=== PATIENT | female | born 1990 | race Caucasian/White ===

== ENCOUNTER 2016-12-25 17:07 | Emergency (ER) | payer BC, OTHER ==
[2016-12-25 17:21] VITALS: BP 152/84; PULSE 83; RESP 20; TEMP 98.3
[2016-12-25] MEDS ORDERED: DIPH,PERTUS(ACELL)TETVAC-LF 0.5 ML VIAL IM ONE (17:59)
--- NOTE | 2016-12-25 18:01 | ED ---
General Adult HPI - General Chief complaint: Wound/Laceration Stated complaint: TOUNGE INJURY Time Seen by Provider: 12/25/16 17:34 Source: patient, RN notes reviewed Mode of arrival: ambulatory Limitations: no limitations - History of Present Illness Initial comments: Patient 26-year-old female who presents emergency room today with a chief complaint of laceration to her tongue. She mitts that approximate hour ago she was picking up a water jug when it was later she thought hit her chin causing her to go through the edge of her tongue. She states bleeding has stopped. She states she's unsure of her tetanus. She denies any other complaints or symptoms at this time. - Related Data Home Medications Medication Instructions Recorded Confirmed EPINEPHrine [Epipen 2-Wei] 0.3 mg IM ONCE PRN 01/17/16 12/25/16 Albuterol Sulfate [Proair Hfa] 2 puff INHALATION RT-Q6H PRN 12/25/16 12/25/16 Aspirin/Acetaminophen/Caffeine 2 tab PO DAILY PRN 12/25/16 12/25/16 [Excedrin Extra Strength Caplet] Montelukast Sodium [Singulair] 10 mg PO HS 12/25/16 12/25/16 Omeprazole [PriLOSEC] 20 mg PO BID 12/25/16 12/25/16 Sulfamethoxazole/Trimethoprim 1 tab PO BID 12/25/16 12/25/16 [Bactrim DS 800-160 mg] predniSONE See Taper PO DIRECTED 12/25/16 12/25/16 Allergies Allergy/AdvReac Type Severity Reaction Status Date / Time cefdinir [From Omnicef] Allergy Rash/Hives Verified 12/25/16 17:43 ibuprofen [From Motrin] Allergy Anaphylaxis,tongue Verified 12/25/16 17:43 swells lansoprazole [From Prevacid] Allergy Rash/Hives Verified 12/25/16 17:43 Review of Systems ROS Statement: Those systems with pertinent positive or pertinent negative responses have been documented in the HPI. ROS Other: All systems not noted in ROS Statement are negative. Past Medical History Past Medical History: Asthma Additional Past Medical History / Comment(s): febrile seizure age 16 months History of Any Multi-Drug Resistant Organisms: None Reported Past Surgical History: Adenoidectomy, Tonsillectomy, Tubal Ligation Additional Past Surgical History / Comment(s): EXPLORATORY LAP, cyst removed left axillary Past Anesthesia/Blood Transfusion Reactions: Postoperative Nausea & Vomiting ( PONV) Past Psychological History: Anxiety Smoking Status: Current every day smoker Past Alcohol Use History: None Reported Past Drug Use History: None Reported General Exam - General Exam Comments Initial Comments: General: The patient is awake and alert, in no distress, and does not appear acutely ill. Eye: Pupils are equal, round and reactive to light, extra-ocular movements are intact. No nystagmus. There is normal conjunctiva bilaterally. No signs of icterus. Ears, nose, mouth and throat: There are moist mucous membranes and no oral lesions. Neck: The neck is supple, there is no tenderness or JVD. Cardiovascular: There is a regular rate and rhythm. No murmur, rub or gallop is appreciated. Respiratory: Lungs are clear to auscultation, respirations are non-labored, breath sounds are equal. No wheezes, stridor, rales, or rhonchi. Musculoskeletal: Normal ROM, no tenderness. Strength 5/5. Sensation intact. Pulses equal bilaterally 2+. Neurological: A&O x 3. CN II-XII intact, There are no obvious motor or sensory deficits. Coordination appears grossly intact. Speech is normal. Skin: does have a laceration at the tip of the tongue. There is no gaping wound. There is no bleeding. Cannot pull the site apart. Psychiatric: Cooperative, appropriate mood & affect, normal judgment. Limitations: no limitations Course Vital Signs 12/25/16 17:19 Temperature 98.3 F Pulse Rate 83 Respiratory 20 Rate Blood Pressure 152/84 O2 Sat by Pulse 99 Oximetry Medical Decision Making - Medical Decision Making Case discussed in detail with attending physician Dr. Charles. patient's wound arm. It is approximated. There is no active bleeding. Patient discharged home. Advised return for any other concerns. Given ENT follow-up with primary complication. Disposition Clinical Impression: Tongue laceration Disposition: HOME SELF-CARE Condition: Good Instructions: Laceration (ED) Additional Instructions: Please follow-up with ENT/family doctor in the next 2 days of symptoms have not improved. Please return to emergency room if the symptoms increase or worsen or for any other concerns. Referrals: Yuniel Jose MD [Primary Care Provider] - 1-2 days Sunil Vargas DO [Doctor of Osteopathic Medicine] - 1-2 days Time of Disposition: 18:01
== END 2016-12-25 18:24 | disposition home or self-care (01) ==
LOC: EC 17:07
DX: S01.512A Laceration without foreign body of oral cavity, initial encounter (principal); F17.200 Nicotine dependence, unspecified, uncomplicated; Z88.1 Allergy status to other antibiotic agents; Z88.6 Allergy status to analgesic agent; Z88.8 Allergy status to other drugs, medicaments and biological substances; Z90.49 Acquired absence of other specified parts of digestive tract; Z79.52 Long term (current) use of systemic steroids; Z79.899 Other long term (current) drug therapy; W26.9XXA Contact with unspecified sharp object(s), initial encounter; Y93.89 Activity, other specified
CPT/HCPCS: 90471; 90715; 99283

== ENCOUNTER → 2018-05-25 | Outpatient (CLI) | payer OTHER ==
[2018-05-25 19:45] LABS: Iron Saturation 22.48 (12.00-45.00)
== END | disposition home or self-care (01) ==
LOC: LABWHC1 12:49
PROVIDERS: ATTEND Surgery Plastic and Reconstructive Surgery
DX: E61.1 Iron deficiency (principal)
CPT/HCPCS: 36415; 83540; 83550

== ENCOUNTER 2018-06-17 10:01 | Day surgery (SDC) | payer OTHER ==
[2018-06-15 11:24] VITALS: BMI 35.0
--- NOTE | 2018-06-17 07:27 | P.GSHP ---
History of Present Illness H&P Date: 06/17/18 CHIEF COMPLAINT: Symptomatic hemorrhoids and rectal bleeding HISTORY OF PRESENT ILLNESS: The patient is a 27-year-old female who presents with symptomatic hemorrhoids and rectal bleeding. She now presents for definitive surgical intervention. PAST MEDICAL HISTORY: Please see list. PAST SURGICAL HISTORY: Please see list. MEDICATIONS: Please see list. ALLERGIES: Please see list. SOCIAL HISTORY: No illicit drug use FAMILY HISTORY: No reports of Crohn disease or ulcerative colitis. REVIEW OF ORGAN SYSTEMS: CONSTITUTIONAL: No reports of fevers or chills. PHYSICAL EXAM: VITAL SIGNS: Stable GENERAL: Well-developed pleasant in no acute distress. HEENT: No scleral icterus. Extraocular movements grossly intact. Moist buccal mucosa. NECK: Supple without lymphadenopathy. CHEST: Unlabored respirations. Equal bilateral excursions. CARDIOVASCULAR: Regular rate and rhythm. Distal 2+ pulses. ABDOMEN: Soft, nontender, nondistended. MUSCULOSKELETAL: No clubbing, cyanosis, or edema. RECTUM: Grade 3 external hemorrhoids ASSESSMENT: 1. Symptomatic hemorrhoids, grade 3. PLAN: 1. Recommend proceeding hemorrhoidectomy Past Medical History Past Medical History: Asthma Additional Past Medical History / Comment(s): Hemorrhoids; febrile seizure age 16 months History of Any Multi-Drug Resistant Organisms: None Reported Past Surgical History: Adenoidectomy, Tonsillectomy, Tubal Ligation Additional Past Surgical History / Comment(s): EXPLORATORY LAP, cyst removed Left & Right axillary Past Anesthesia/Blood Transfusion Reactions: Postoperative Nausea & Vomiting ( PONV) Smoking Status: Current every day smoker - Past Family History Mother Family Medical History: No Reported History Medications and Allergies Home Medications Medication Instructions Recorded Confirmed Type EPINEPHrine [Epipen 2-Wei] 0.3 mg IM ONCE PRN 01/17/16 06/15/18 History Albuterol Inhaler [Ventolin Hfa 1 - 2 puff INHALATION RT-Q6H PRN 06/15/18 History Inhaler] Cholecalciferol (Vitamin D3) 2,000 unit PO DAILY 06/15/18 06/15/18 History [Vitamin D3] Allergies Allergy/AdvReac Type Severity Reaction Status Date / Time cefdinir [From Omnicef] Allergy Rash/Hives Verified 12/25/16 17:43 ibuprofen [From Motrin] Allergy Anaphylaxis,tongue Verified 06/15/17 17:43 swells lansoprazole [From Prevacid] Allergy Rash/Hives Verified 12/25/16 17:43 cephalexin [From Keflex] AdvReac Rash/Hives Verified 06/15/18 11:11 dial soap AdvReac Rash/Hives Uncoded 06/15/18 11:11
[~2018-06-17 10:01] MED LIST: CLINDAMYCIN 900 MG in DEXTROSE 5% IN WATER 50 ML IVPB ONE; DEXAMETHASONE SOD PHOSPHATE 10 MG/ML 1 ML VIAL IV ONE; LACTATED RINGERS 1,000 ML IV SCH; MORPHINE SULFATE 2 MG/ML SYRINGE IV PRN; NA PHOS,M-B/NA PHOS,DI-BA 133 ML ENEMA RECTAL ONE; ONDANSETRON 4 MG/2 ML VIAL IVP ONE; Pre Op ABX Message 1 EACH MISC MISCELLANE ONE
[2018-06-17 11:05] LABS: Basophils % (A) 1 %; Eosinophils # (A) 0.5 k/uL (0-0.7); Eosinophils % (A) 8 %; HCT 45.7 % (34.0-46.0); Lymphocytes # (A) 1.7 k/uL (1.0-4.8); Lymphocytes % (A) 26 %; MCH 30.1 pg (25.0-35.0); MCHC 32.8 g/dL (31.0-37.0); MCV 91.9 fL (80.0-100.0); Mean Platelet Volume 6.6; Monocytes # (A) 0.4 k/uL (0-1.0); Monocytes % (A) 6 %; Neutrophils # (A) 3.8 k/uL (1.3-7.7); Neutrophils % (A) 58 %; Platelet Count 357 k/uL (150-450); RBC 4.97 m/uL (3.80-5.40); RDW 13.1 % (11.5-15.5); WBC 6.6 k/uL (3.8-10.6)
[2018-06-17] MEDS ORDERED: fentaNYL (PF) 50 MCG/ML 2 ML AMP ONE (11:30)
[2018-06-17] MEDS ORDERED: MIDAZOLAM 2 MG/2 ML VIAL ONE (11:30)
[2018-06-17] MEDS ORDERED: PROPOFOL 10 MG/ML 20 ML VIAL IV ONE ×2 (11:30)
[2018-06-17] MEDS ORDERED: LIDOCAINE 1% INJ 10MG/ML (20 ML MDV) ONE (11:30)
[2018-06-17] MEDS ORDERED: BUPIVACAINE LIPOSOME/PF 1.3% 20 ML, SODIUM CHLORIDE 0.9% 10 ML MISCELLANE STA ×2 (11:43)
--- NOTE | 2018-06-17 12:20 | P.OP ---
Date of Procedure: 06/17/18 Description of Procedure: SURGEON: GUERITA RAMSEY MD [employer] TEACHER: NONE. PREOPERATIVE DIAGNOSES: 1. History of complicated internal hemorrhoids, grade 3. 2. History of complicated external hemorrhoids, grade 3. 3. History of rectal bleeding. POSTOPERATIVE DIAGNOSES: 1. History of complicated internal hemorrhoids, grade 3. 2. History of complicated external hemorrhoids, grade 3. 3. History of rectal bleeding. OPERATION: 1. Excision of internal and external hemorrhoids x 3 using LigaSure. ANESTHESIA: GETA with Exparel mixture. ESTIMATED BLOOD LOSS: 2 mL. PATHOLOGY: 1. Internal, external hemorrhoidal complex x 3. FINDINGS: 1. Grade 3 internal/external hemorrhoidal cushion 3 excised. 2. No anal stricture upon excision of hemorrhoidal complexes. INDICATIONS: The patient is a 27-year-old female who presents with rectal bleeding including complicated internal/external hemorrhoids. Surgical intervention was described for hemorrhoidectomy. Benefits and risks of the procedure, including bleeding, infection, incontinence, recurrent pain and recurrence of the hemorrhoids were discussed in detail. Informed consent was obtained. DESCRIPTION: Patient was brought to the operating room. After general, she was then repositioned the prone jackknife position. Next, the perineum and buttocks was spread apart using Mastisol. The perineum was then prepped and draped in standard sterile fashion using Betadine. Preoperative medication was confirmed. Prior to incision, a timeout protocol was confirmed with surgical team. Initially 2 fingers was easily inserted for dilation of the anus. Grade 3 hemorrhoids along all 3 quadrants were identified. Next, using a Hill-Liriano anoscope, each hemorrhoidal cushion was addressed using a hand-held LigaSure after elevating each hemorrhoidal complex using forceps. At the end of the case, digital evaluation were performed without any features of the anal stricture or stenosis. Hemostasis was checked. A perineal block using Exparel was placed. Several 4 x 4 gauze with bacitracin ointment and mesh underwear was placed. At the end of the procedure, needle, sponge, and counts had been verified correct by the certified surgical first assistant. The patient then had tolerated the procedure well. Plan - Discharge Summary New Discharge Prescriptions: No Action EPINEPHrine [Epipen 2-Wei] 0.3 mg IM ONCE PRN PRN Reason: Allergic Reaction Albuterol Inhaler [Ventolin Hfa Inhaler] 1 - 2 puff INHALATION RT-Q6H PRN PRN Reason: Bronchospasm Cholecalciferol (Vitamin D3) [Vitamin D3] 2,000 unit PO DAILY Discharge Medication List EPINEPHrine [Epipen 2-Wei] 0.3 mg IM ONCE PRN 01/17/16 [History] Albuterol Inhaler [Ventolin Hfa Inhaler] 1 - 2 puff INHALATION RT-Q6H PRN [History] Cholecalciferol (Vitamin D3) [Vitamin D3] 2,000 unit PO DAILY 06/15/18 [History]
[2018-06-17 12:34] VITALS: TEMP 96.8
[2018-06-17] MEDS: HYDROmorphone 0.5 MG/0.5 ML SYRINGE IVP PRN ×2 (12:45→12:51)
[2018-06-17 14:03] VITALS: BP 122/81; PULSE 62; RESP 16
[2018-06-18 19:46] LABS: Iron Saturation 40.49 (12.00-45.00)
== END 2018-06-17 14:08 | disposition home or self-care (01) ==
LOC: OR 10:01
PROVIDERS: ATTEND Surgery Plastic and Reconstructive Surgery
DX: K64.4 Residual hemorrhoidal skin tags (principal); K64.8 Other hemorrhoids; F17.210 Nicotine dependence, cigarettes, uncomplicated; J45.909 Unspecified asthma, uncomplicated; Z79.899 Other long term (current) drug therapy; Z88.1 Allergy status to other antibiotic agents; Z88.6 Allergy status to analgesic agent; Z88.8 Allergy status to other drugs, medicaments and biological substances
CPT/HCPCS: 81025; 88304; 83540; 83550; 85025; 46260; J2250; J1100; J2405; J2001; J3010; C9290; J2704; J1170

== ENCOUNTER → 2020-08-29 | Outpatient (CLI) | payer BC, OTHER ==
--- NOTE | 2020-08-29 13:56 | CT ---
EXAMINATION TYPE: CT abdomen pelvis wo con DATE OF EXAM: 08/29/2020 COMPARISON: INDICATION: Lt flank pain DLP: 720.3 mGycm, Automated exposure control for dose reduction was used. CONTRAST: None Study performed without Oral Contrast TECHNIQUE: Axial images were obtained from above the diaphragm to the pubic rami in the axial plane a t 5 mm thick sections. Reconstructed images are reviewed on the computer in the coronal plane. FINDINGS: Limited CT sections are obtained the lung bases. The lung bases are clear. CT ABDOMEN: Liver: Normal Spleen: Normal Pancreas: Normal Adrenal glands: The adrenal glands are normal. Gallbladder: Normal Kidneys: No masses are evident. No hydronephrosis is present. No cysts are present. No renal stone s are evident. Ureteral stones are not identified. Aorta: Normal Inferior vena cava: Normal. CT PELVIS: Loops of bowel within the abdomen and pelvis are normal. Study is without oral contrast limiting bowel evaluation. Appendix: Normal as visualized. Urinary bladder: Normal. Genitourinary structures: Uterus is normal. Tubal ligation clips are present. Adnexa appear normal Osseous structures: No suspicious lytic or sclerotic lesions. IMPRESSIONS: 1. Normal noncontrast CT abdomen and pelvis. 2. No suspicious renal or ureteral stones.
== END | disposition home or self-care (01) ==
LOC: RADCTMAIN 12:51
PROVIDERS: ATTEND Family Medicine
DX: R10.9 Unspecified abdominal pain (principal)
CPT/HCPCS: 74176

== ENCOUNTER → 2021-07-24 | Outpatient (CLI) | payer OTHER ==
--- NOTE | 2021-07-24 10:20 | MR ---
MR left ankle without contrast HISTORY: Left foot pain Multiplanar multisequence imaging obtained through the left ankle No comparisons There is abnormal fluid signal present along the peroneal is longus tendon, coronal image 15, sagitta l image 6, abnormal increased intrinsic signal is present consistent with longitudinal split tear. So me fluid signal is also present along the groins brevis tendon consistent with T no synovitis. Small joint effusion noted. Bone marrow signal is maintained. There is no evident fracture or dislocation. Plantar aponeurosis is intact. Achilles tendon is intact. Some mild increased intrinsic signal within the Achilles tendon may be due to strain or degenerative change from partial tear. Flexor and extens or tendons are intact. No evident ligamentous disruption. IMPRESSION: Partial tear of the peroneal longus tendon.
== END | disposition home or self-care (01) ==
LOC: RADMRIMAIN 05:57
PROVIDERS: ATTEND Orthopaedic Surgery
DX: S86.312A Strain of muscle(s) and tendon(s) of peroneal muscle group at lower leg level, left leg, initial encounter (principal); X58.XXXA Exposure to other specified factors, initial encounter

== ENCOUNTER → 2021-10-03 | Outpatient (CLI) | payer OTHER ==
--- NOTE | 2021-10-03 15:47 | US ---
EXAMINATION TYPE: US abdomen limited DATE OF EXAM: 10/03/2021 COMPARISON: NONE CLINICAL HISTORY: R10.9 ABD PAIN. vomiting and RUQ pain x 2 days EXAM MEASUREMENTS: Liver Length: 14.8 cm Gallbladder Wall: 0.3 cm CBD: 0.2 cm Right Kidney: 9.7 cm Pancreas: limited evaluation due to overlying bowel content, visualized portions appear wnl Liver: wnl Gallbladder: no evidence of stones Evidence for sonographic Taylor's sign: no CBD: wnl Right Kidney: no evidence of hydronephrosis IMPRESSION: 1. Right upper quadrant ultrasound appears unremarkable
[2021-10-03 23:34] LABS: African American GFR (CKD) 95.7 (60.0-200.0); Albumin/Globulin Ratio 2.28 (1.60-3.17); BUN/Creat Ratio 7.51 Ratio (12.00-20.00); Blood Urea Nitrogen 6.9 mg/dL (9.0-27.0); Calcium 9.8 mg/dL (8.7-10.3); Carbon Dioxide 19.7 mmol/L (20.0-27.5); Globulin 2.2 g/dL (1.6-3.3); Magnesium 2.1 mg/dL (1.5-2.4); Non-African American GFR(CKD) 82.6 (60.0-200.0); Total Bilirubin 0.6 mg/dL (0.30-1.20); Total Protein 7.2 g/dL (6.2-8.2)
[2021-10-04 00:52] LABS: Basophils # (A) 0.06 X 10*3/uL (0.00-0.10); Basophils % (A) 0.7 %; Eosinophils # (A) 0.23 X 10*3/uL (0.04-0.35); Eosinophils % (A) 2.8 %; HCT 47.1 % (37.2-46.3); HGB 15.6 g/dL (12.0-15.0); Immature Grans, Automated 0.1 %; Lymphocytes # (A) 2.38 X 10*3/uL (0.90-5.00); Lymphocytes % (A) 29.1 %; MCH 30.7 pg (27.0-32.0); MCHC 33.1 g/dL (32.0-37.0); MCV 92.7 fL (80.0-97.0); Monocytes % (A) 6.1 %; NRBC Per 100 WBC 0 /100 WBCS (0.0-0.0); Neutrophils # (A) 5.01 X 10*3/uL (1.80-7.70); Neutrophils % (A) 61.2 %; Platelet Count 330 X 10*3/uL (140-440); RBC 5.08 X 10*6/uL (4.10-5.20); RDW 12.7 % (11.5-14.5); WBC 8.19 X 10*3/uL (4.50-10.00)
== END | disposition home or self-care (01) ==
LOC: RADUSWWP 15:16
PROVIDERS: ATTEND Family Medicine
DX: R10.11 Right upper quadrant pain (principal); R11.10 Vomiting, unspecified
CPT/HCPCS: 76705; 80053; 82150; 83690; 83735; 85025

== ENCOUNTER 2022-05-06 14:46 | Emergency (ER) | payer BC, OTHER ==
--- NOTE | 2022-05-06 15:38 | ED ---
General Adult HPI - General Chief complaint: Abdominal Pain Stated complaint: Abd pain-Sent by PCP Time Seen by Provider: 05/06/22 15:33 Source: patient Mode of arrival: ambulatory Limitations: no limitations - History of Present Illness Initial comments: Dictation was produced using [employer] dictation software. please excuse any grammatical, word or spelling errors. Chief Complaint: 31-year-old feel presents to the emergency department for right lower quadrant pain History of Present Illness: 31-year-old female she presents emergency department for right lower quadrant pain. She states that her symptoms began earlier this morning. She made an appointment with her primary care doctor. She was able to lift her PCPs office they ended up sending her here for concerns of acute appendicitis. Patient claims of some nausea and chills. Denies any fevers. Patient does have a history of ovarian cysts. States that her pain is severe and radiates to the right flank area. Denies any history of abdominal surgery except for tubal ligation. The ROS documented in this emergency department record has been reviewed and confirmed by me. Those systems with pertinent positive or negative responses have been documented in the HPI. All other systems are other negative and/or noncontributory. PHYSICAL EXAM: General Impression: Alert and oriented x3, acute distress secondary to pain HEENT: Normocephalic atraumatic, extra-ocular movements intact, pupils equal and reactive to light bilaterally, mucous membranes moist. Cardiovascular: Heart regular rate and rhythm Chest: Able to complete full sentences, no retractions, no tachypnea Abdomen: abdomen soft, rebound tenderness in the right lower quadrant at McBurney's point, non-distended, no organomegaly Musculoskeletal: Pulses present and equal in all extremities, no peripheral edema Motor: no focal deficits noted Neurological: CN II-XII grossly intact, no focal motor or sensory deficits noted Skin: Intact with no visualized rashes Psych: Normal affect and mood ED course: 31 yo Female presents emergency department for clinical presentation concerning for acute appendicitis. Vital signs upon arrival are within acceptable limits. Laboratory evaluation obtained CBC, metabolic panel is unremarkable. No leukocytosis. Urinalysis is negative. Computed tomography scan is unremarkable. Appendix is visualized with no signs of acute appendicitis. Patient observed in emergency department for 4 hours. Reevaluated at bedside at 6:50 PM found to be stable medical condition. Patient is agreeable for discharge. She is offered by mouth analgesics but would prefer to take [id number] NSAIDs. Advised follow-up with primary care doctor. Unclear what's causing patient's symptoms however there are no high-risk features. - Related Data Home Medications Medication Instructions Recorded Confirmed EPINEPHrine [Epipen 2-Wei] 0.3 mg IM ONCE PRN 01/17/16 06/17/18 Albuterol Inhaler [Ventolin Hfa 1 - 2 puff INHALATION RT-Q6H PRN 06/15/18 06/17/18 Inhaler] Previous Rx's Medication Instructions Recorded Docusate [Colace] 100 mg PO DAILY #20 capsule 06/17/18 HYDROcodone/APAP 7.5-325MG [[place] 1 tab PO Q4H PRN 3 Days #18 tab 06/17/18 7.5-325] metroNIDAZOLE [Flagyl] 500 mg PO BID #10 tab 06/17/18 Allergies Allergy/AdvReac Type Severity Reaction Status Date / Time cefdinir [From Omnicef] Allergy Rash/Hives Verified 05/06/22 15:08 ibuprofen [From Motrin] Allergy Anaphylaxis,tongue Verified 05/06/22 15:08 swells lansoprazole [From Prevacid] Allergy Rash/Hives Verified 05/06/22 15:08 cephalexin [From Keflex] AdvReac Rash/Hives Verified 05/06/22 15:08 dial soap AdvReac Rash/Hives Uncoded 05/06/22 15:08 Review of Systems ROS Statement: Those systems with pertinent positive or pertinent negative responses have been documented in the HPI. ROS Other: All systems not noted in ROS Statement are negative. Past Medical History Past Medical History: Asthma Additional Past Medical History / Comment(s): Hemorrhoids; febrile seizure age 16 months History of Any Multi-Drug Resistant Organisms: None Reported Past Surgical History: Adenoidectomy, Tonsillectomy, Tubal Ligation Additional Past Surgical History / Comment(s): EXPLORATORY LAP, cyst removed Left & Right axillary Past Anesthesia/Blood Transfusion Reactions: Postoperative Nausea & Vomiting (PONV) Past Psychological History: Anxiety Smoking Status: Current every day smoker Past Alcohol Use History: Rare Past Drug Use History: Marijuana - Past Family History Mother Family Medical History: No Reported History General Exam Limitations: no limitations Course Vital Signs 05/06/22 15:06 Temperature 98.1 F Pulse Rate 84 Respiratory 20 Rate Blood Pressure 120/78 O2 Sat by Pulse 100 Oximetry Medical Decision Making - Lab Data Result diagrams: 05/06/22 17:00 05/06/22 15:11 Lab Results 05/06/22 05/06/22 05/06/22 Range/Units 15:11 17:00 18:11 WBC 8.3 (3.8-10.6) k/uL RBC 5.17 (3.80-5.40) m/uL Hgb 16.1 H (11.4-16.0) gm/dL Hct 48.7 H (34.0-46.0) % MCV 94.2 (80.0-100.0) fL MCH 31.3 (25.0-35.0) pg MCHC 33.2 (31.0-37.0) g/dL RDW 12.5 (11.5-15.5) % Plt Count 343 (150-450) k/uL MPV 7.2 Neutrophils % 64 % Lymphocytes % 26 % Monocytes % 5 % Eosinophils % 3 % Basophils % 1 % Neutrophils # 5.3 (1.3-7.7) k/uL Lymphocytes # 2.2 (1.0-4.8) k/uL Monocytes # 0.4 (0-1.0) k/uL Eosinophils # 0.3 (0-0.7) k/uL Basophils # 0.0 (0-0.2) k/uL Sodium 135 L (137-145) mmol/L Potassium 4.6 (3.5-5.1) mmol/L Chloride 105 (98-107) mmol/L Carbon Dioxide 22 (22-30) mmol/L Anion Gap 8 mmol/L BUN 9 (7-17) mg/dL Creatinine 0.79 (0.52-1.04) mg/dL Est GFR (CKD-EPI)AfAm >90 (>60 ml/min/1.73 sqM) Est GFR (CKD-EPI)NonAf >90 (>60 ml/min/1.73 sqM) Glucose 80 (74-99) mg/dL Calcium 8.7 (8.4-10.2) mg/dL Total Bilirubin 1.2 (0.2-1.3) mg/dL AST 33 (14-36) U/L ALT 16 (4-34) U/L Alkaline Phosphatase 45 (38-126) U/L Total Protein 6.9 (6.3-8.2) g/dL Albumin 4.5 (3.5-5.0) g/dL Lipase 34 (23-300) U/L Urine Color Yellow Urine Appearance Cloudy H (Clear) Urine pH 6.0 (5.0-8.0) Ur Specific [place] 1.017 (1.001-1.035) Urine Protein Negative (Negative) Urine Glucose (UA) Negative (Negative) Urine Ketones 3+ H (Negative) Urine Blood Negative (Negative) Urine Nitrite Negative (Negative) Urine Bilirubin Negative (Negative) Urine Urobilinogen <2.0 (<2.0) mg/dL Ur Leukocyte Esterase Small H (Negative) Urine WBC 2 (0-5) /hpf Ur Squamous Epith Cells 5 H (0-4) /hpf Urine Mucus Rare H (None) /hpf Disposition Clinical Impression: Abdominal pain Disposition: HOME SELF-CARE Condition: Good Instructions (If sedation given, give patient instructions): Abdominal Pain (ED) Is patient prescribed a controlled substance at d/c from ED?: No Referrals: Justyn Larkin MD [Primary Care Provider] - 1-2 days Time of Disposition: 18:59
[2022-05-06 15:57] LABS: ALT 16 U/L (4-34); AST 33 U/L (14-36); African American GFR (CKD) >90 (>60 ml/min/1.73 sqM); Albumin 4.5 g/dL (3.5-5.0); Alkaline Phosphatase 45 U/L (38-126); Anion Gap 8 mmol/L; Blood Urea Nitrogen 9 mg/dL (7-17); Calcium 8.7 mg/dL (8.4-10.2); Carbon Dioxide 22 mmol/L (22-30); Chloride 105 mmol/L (98-107); Glucose 80 mg/dL (74-99); Lipase 34 U/L (23-300); Non-African American GFR(CKD) >90 (>60 ml/min/1.73 sqM); Sodium 135 mmol/L (137-145); Total Bilirubin 1.2 mg/dL (0.2-1.3); Total Protein 6.9 g/dL (6.3-8.2)
[2022-05-06 16:03] LABS: Potassium 4.6 mmol/L (3.5-5.1)
[2022-05-06 17:12] LABS: Basophils % (A) 1 %; Eosinophils # (A) 0.3 k/uL (0-0.7); Eosinophils % (A) 3 %; HCT 48.7 % (34.0-46.0); HGB 16.1 gm/dL (11.4-16.0); Lymphocytes # (A) 2.2 k/uL (1.0-4.8); Lymphocytes % (A) 26 %; MCH 31.3 pg (25.0-35.0); MCHC 33.2 g/dL (31.0-37.0); MCV 94.2 fL (80.0-100.0); Mean Platelet Volume 7.2; Monocytes # (A) 0.4 k/uL (0-1.0); Monocytes % (A) 5 %; Neutrophils # (A) 5.3 k/uL (1.3-7.7); Neutrophils % (A) 64 %; Platelet Count 343 k/uL (150-450); RBC 5.17 m/uL (3.80-5.40); RDW 12.5 % (11.5-15.5); WBC 8.3 k/uL (3.8-10.6)
--- NOTE | 2022-05-06 17:26 | CT ---
EXAMINATION TYPE: CT abdomen pelvis w con DATE OF EXAM: 05/06/2022 COMPARISON: 08/29/2020 HISTORY: h/p RLQ pain x1 days r/o appy CT DLP: 951.6 mGycm Automated exposure control for dose reduction was used. CONTRAST: Performed with IV Contrast, patient injected with 100 mL of Isovue 300. Images obtained from the diaphragm to the floor the pelvis with the IV contrast. The lung bases are clear. No pleural effusion. Heart size is normal. No pericardial effusion. Liver spleen and stomach pancreas gallbladder appear normal. The bile ducts are not dilated. There is no adrenal mass. Kidneys have normal size. No hydronephrosis. Ureters are not dilated. The bladder d istends smoothly. No inguinal hernia. No free fluid in the pelvis. Uterus is retroverted. No pelvic mass. There are apparent clips from tubal ligation. There is normal contrast opacification of the kid neys. No hydronephrosis. Delayed images show normal renal excretion. The lumbar vertebrae have normal alignment. Posterior elements are intact. No compression fracture. F acet joints are intact. The bony pelvis is intact. The hip joints are intact. The appendix is posterior and appears normal. There is no mesenteric edema. No ascites or free air. N o sign of a bowel obstruction. IMPRESSION: Normal CT scan of the abdomen and pelvis. Normal appendix.
[2022-05-06 18:45] LABS: Appearance,Urine Cloudy (Clear); Bilirubin,Urine Negative (Negative); Blood,Urine Negative (Negative); Color,Urine Yellow; Glucose,Urine (UA) Negative (Negative); Ketones,Urine 3+ (Negative); Leukocyte Esterase,Urine Small (Negative); Mucus,Urine Rare /hpf; Nitrite,Urine Negative (Negative); Protein,Urine Negative (Negative); Specific Gravity,Urine 1.017 (1.001-1.035); Squamous Epithelial Cell,Urine 5 /hpf (0-4); Urobilinogen,Urine <2.0 mg/dL (<2.0); WBC,Urine 2 /hpf (0-5)
[2022-05-06 19:21] VITALS: BP 122/80; PULSE 74; RESP 16; TEMP 97.8
== END 2022-05-06 19:26 | disposition home or self-care (01) ==
LOC: EC 14:46
DX: R10.31 Right lower quadrant pain (principal); J45.909 Unspecified asthma, uncomplicated; F41.9 Anxiety disorder, unspecified; F17.200 Nicotine dependence, unspecified, uncomplicated; F12.90 Cannabis use, unspecified, uncomplicated; Z88.1 Allergy status to other antibiotic agents; Z88.6 Allergy status to analgesic agent; Z91.018 Allergy to other foods; Z79.51 Long term (current) use of inhaled steroids
CPT/HCPCS: 36415; 80053; 83690; 85025; 81001; 74177; 99284; Q9967